=== PATIENT | male | born 1990 | race Caucasian/White ===

== ENCOUNTER 2023-06-14 21:29 | Emergency (ER) | payer OTHER ==
--- OUTSIDE RECORDS SUMMARY | 2023-06-14 21:31 | XMS REPORT | Continuity of Care Document ---
Author Name Unknown Address [address] [facility] [address] [place] [address] [facility] Address [address] [facility] [address] [place] [address] Care Team Providers Care Aurist Name Role Phone Pcp, Patient Does Not Have A Primary Care Physic justin Juan Craig MD Attending Clinician Casandra Wood Attending Clinician CASANDRA SPENCER Attending Clinician Unavailabl e Doctor Unassigned, Kincaid Attending Clinician U JUAN Schafer Attending Clinician Unavailable Payers Payer Name Policy Type Policy Number Effective Date Expirati on Date Source Problems Condition Name Condition Details Condition Category Status Onset Date Resolution Date Last Treatment Date Treating Clinician Comments Source No known active problems No known active problems Disease [facility] Allergies, Adverse Reactions, Alerts Allergy Name Allergy Type Status Severity Reaction(s) Onset Date Inactive Date Treating Clinician Comments Source NO KNOWN ALLERGIE S Drug Class Active [facility] Social History Social Habit Start Date Stop Date Quantity Comments Source Exposure to SARS-CoV-2 (event) 2021-12-10 00:00:00 2021-12-20 09:52:00 Not sure [facility] Alcohol intake 2021-12-20 00:00:00 2021-12-20 00:00:00 Current non-drinker of alcohol (finding) [facility] Tobacco use and exposure 2018-05-17 00:00:00 2018-05-17 00:00:00 Smokeless tobacco non-user [facility] Sex Ass[birth year] At 1990 00:00:00 1990 00:00:00 [facility] Smoking Status Start Date Stop Date Source Never smoked tobacco [facility] Medications Ordered Medication Name Filled Medication Name Start Date Stop Date Current Medication? Ordering Clinician Indication Dosage Frequency Signature (SIG) Comments Components Source predniSONE 10 mg tablet 2021- 8-04 00:00: 00 01-01 04:59 :00 No [id number] Take 4 tablets by mouth daily for 5 days, THEN 3 tablets daily for 3 days, THEN 2 tablets daily for 2 days, THEN 1 tablet daily for 1 day. [facility] predniSONE 10 mg tablet 2021-0 8-04 00:00: 00 01-01 04:59 :00 No [id number] Take 4 tablets by mouth daily for 5 days, THEN 3 tablets daily for 3 days, THEN 2 tablets daily for 2 days, THEN 1 tablet daily for 1 day. [facility] benzonatate 100 mg capsule 2020-05 00:00: 00 Yes [id number] 200mg Take 2 capsules by mouth 2 (two) times daily as needed for Cough. [facility] azelastine 137 mcg (0.1 %) nasal spray 2020-05 00:00: 00 Yes [id number] 1{spray } Use 1 Latrobe in each nostril 2 (two) times daily. Use in each nostril as directed [facility] benzonatate 100 mg capsule 2020-05 00:00: 00 Yes [id number] 200mg Take 2 capsules by mouth 2 (two) times daily as needed for Cough. [facility] azelastine 137 mcg (0.1 %) nasal spray 2020-05 00:00: 00 Yes [id number] 1{spray } Use 1 Latrobe in each nostril 2 (two) times daily. Use in each nostril as directed [facility] benzonatate 100 mg capsule 2020-05 00:00: 00 Yes [id number] 200mg Take 2 capsules by mouth 2 (two) times daily as needed for Cough. [facility] azelastine 137 mcg (0.1 %) nasal spray 2020-05 00:00: 00 Yes [id number] 1{spray } Use 1 Latrobe in each nostril 2 (two) times daily. Use in each nostril as directed [facility] benzonatate 100 mg capsule 2020-05 00:00: 00 Yes [id number] 200mg Take 2 capsules by mouth 2 (two) times daily as needed for Cough. [facility] azelastine 137 mcg (0.1 %) nasal spray 2020-05 00:00: 00 Yes [id number] 1{spray } Use 1 Latrobe in each nostril 2 (two) times daily. Use in each nostril as directed [facility] benzonatate 100 mg capsule 2020-05 00:00: 00 Yes [id number] 200mg Take 2 capsules by mouth 2 (two) times daily as needed for Cough. [facility] azelastine 137 mcg (0.1 %) nasal spray 2020-05 00:00: 00 Yes [id number] 1{spray } Use 1 Latrobe in each nostril 2 (two) times daily. Use in each nostril as directed [facility] fluticasone 50 mcg/actuati on nasal spray 2017-05 00:00: 00 Yes [id number] 2{spray } Use 2 Sprays in each nostril daily. [facility] fluticasone 50 mcg/actuati on nasal spray 2017-05 00:00: 00 Yes [id number] 2{spray } Use 2 Sprays in each nostril daily. [facility] fluticasone 50 mcg/actuati on nasal spray 2017-05 00:00: 00 Yes [id number] 2{spray } Use 2 Sprays in each nostril daily. [facility] fluticasone 50 mcg/actuati on nasal spray 2017-05 00:00: 00 Yes [id number] 2{spray } Use 2 Sprays in each nostril daily. [facility] fluticasone 50 mcg/actuati on nasal spray 2017-05 00:00: 00 Yes [id number] 2{spray } Use 2 Sprays in each nostril daily. [facility] Vital Signs Vital Name Observation Time Observation Value Comments S katie Systolic blood pressure 2021-12-20 14:58:00 117 mm[Hg] [facility] Diastolic blood pressure 2021-12-20 14:58:00 74 mm[Hg] [facility] Heart rate 2021-12-20 14:58:00 73 /min [facility] Body temperature 2021-12-20 14:58:00 36.67 Emily [facility] Respiratory rate 2021-12-20 14:58:00 19 /min [facility] Body height 2021-12-20 14:58:00 177.8 cm [facility] Body weight 2021-12-20 14:58:00 96.798 kg [facility] BMI 2021-12-20 14:58:00 30.62 kg/m2 [facility] Oxygen saturation in Arterial blood by Pulse oximetry 2021-12-20 14:58:00 98 /min [facility] Systolic blood pressure 2021-04-13 16:13:00 129 mm[Hg] [facility] Diastolic blood pressure 2021-04-13 16:13:00 83 mm[Hg] [facility] Heart rate 2021-04-13 16:13:00 78 /min [facility] Body temperature 2021-04-13 16:13:00 36.89 Emily [facility] Respiratory rate 2021-04-13 16:13:00 16 /min [facility] Body weight 2021-04-13 16:13:00 95.664 kg [facility] BMI 2021-04-13 16:13:00 30.26 kg/m2 [facility] Oxygen saturation in Arterial blood by Pulse oximetry 2021-04-13 16:13:00 99 /min [facility] Procedures Procedure Date / Time Performed Performing Clinicia n Source ASSIGNMENT OF BENEFITS 2021-12-20 14:50:28 Docto r Unassigned, Kincaid [facility] Encounters Start Date/Time End Date/Time Encounter Type Admission Type Attending Clinicians Care Facility Care Department Encounter ID Source 2021-12-24 00:00:00 2021-12-24 00:00:00 [facility] [id number] [facility] 2021-12-20 09:40:00 2021-12-20 10:00:00 [facility]gent [facility] 1..840.114 [id number] [facility] 2021-12-20 09:40:00 2021-12-20 09:40:00 [id number] 2021-12-20 00:00:00 2021-12-20 00:00:00 Orders Only Doctor Unassigned, Kincaid [place] [id number] [facility] 2021-04-13 10:09:11 2021-04-13 10:28:40 [facility] 1..840.114 [id number] [facility] 2021-04-13 10:00:00 2021-04-13 10:28:40 Outpatient R NHUNG [facility] [id number] [facility] 2021-04-13 00:00:00 2021-04-13 00:00:00 Letter (Out) Doctor Unassigned, Kincaid [place] [id number] [facility]
[2023-06-14 22:08] LABS: Absolute Basophils 0.1 K/uL (0-0.5); Absolute Lymphocytes (CBC) 2.7 K/uL (0.7-4.9); Absolute Monocytes 0.6 K/uL (0.1-1.3); Absolute Neutrophil 5.1 K/uL (1.8-8.0); Basophils % 0.8 % (0-1.3); Eosinophils % 18.9 % (0-4.4); Hematocrit 43.3 % (39.6-49.0); Hemoglobin 14.8 g/dL (13.6-17.9); MCH 29.2 pg (27.0-35.0); MCHC 34.2 g/dL (32.0-36.0); MCV 85.3 fL (80-100); MPV 8.4 fL (7.6-11.3); Monocytes % 5.4 % (3.3-12.3); Neutrophils % 48.9 % (41.7-73.7); Platelets 218 thou/uL (152-406); RBC Red Blood Cell Count 5.07 M/uL (4.33-5.43); Red Cell Distribution Width 13.6 % (12.1-15.2)
[2023-06-14] MEDS ORDERED: KETOROLAC 30 MG/ML INJ ONE (22:13)
[2023-06-14] MEDS ORDERED: NA CHLORIDE 0.9% 1,000 ML ONE (22:13)
[2023-06-14] MEDS ORDERED: ONDANSETRON 4 MG/2 ML VIAL ONE (22:13)
[2023-06-14 22:23] LABS: Albumin 3.9 g/dL (3.4-5.0); Albumin/Globulin Ratio 1.2 (1.1-1.8); Anion Gap 9.9 mEq/L (5.0-15.0); Bilirubin Total 0.4 mg/dL (0.2-1.0); Globulin 3.2 g/dL (2.3-3.5); Potassium 3.9 mEq/L (3.5-5.1); Protein, Total 7.1 g/dL (6.4-8.2)
[2023-06-14 22:31] LABS: Urine Bilirubin NEGATIVE (Negative); Urine Blood Negative (Negative); Urine Clarity Clear (Clear); Urine Color Light-Yellow (Yellow); Urine Glucose NEGATIVE (Negative); Urine Ketones NEGATIVE (Negative); Urine Microscopic Reflex YN NO UMIC; Urine Nitrite NEGATIVE (Negative); Urine Protein NEGATIVE (Negative); Urine Urobilinogen Normal (Normal); Urine pH 5.5 (5.0-7.0)
[2023-06-14 22:43] LABS: Blood Morphology Comment NOT SEEN (NOT SEEN); Platelet Estimate ADEQ; White Blood Cell Scan OK (OK)
--- NOTE | 2023-06-15 01:20 | ER ---
Nurse's Notes [facility] Name: Jerrod Alvarez Age: 32 yrs Sex: Male : 1990 Arrival Date: 06/14/2023 Time: 21:29 Bed 15 Private MD: Diagnosis: Abdominal pain, unspecified Presentation: 06/14 21:38 Chief complaint: Patient states: two weeks ago I had diarrhea for like five days. ha1 diarrhea stopped but I am having ongoing abdominal pain ever since. Coronavirus screen: Vaccine status: Patient reports receiving the 1st dose of the Covid vaccine. J and J. Ebola Screen: No symptoms or risks identified at this time. Initial Sepsis Screen: Does the patient meet any 2 criteria? No. Patient's initial sepsis screen is negative. Does the patient have a suspected source of infection? No. Patient's initial sepsis screen is negative. Risk Assessment: Do you want to hurt yourself or someone else? Patient reports no desire to harm self or others. Onset of symptoms was June 14, 2023. 21:38 Method Of Arrival: Ambulatory 1 21:38 Acuity: JOHNNIE 3 ha1 Triage Assessment: 21:41 General: Appears comfortable, Behavior is calm, cooperative. Pain: Complains of pain in ha1 abdomen Pain does not radiate. Pain currently is 6 out of 10 on a pain scale. Neuro: Level of Consciousness is awake, alert, obeys commands, Oriented to person, place, time, situation. Respiratory: Airway is patent Respiratory effort is even, unlabored, Respiratory pattern is regular, symmetrical. GI: Abdomen is flat, non-distended, Reports lower abdominal pain, upper abdominal pain, nausea. Historical: - Allergies: 21:41 No Known Allergies; ha1 - PMHx: 21:41 None; ha1 - PSHx: 21:41 shoulder repair; ha1 - Immunization history:: Adult Immunizations up to date. - Social history:: Smoking status: Patient denies any tobacco usage or history of. Screenin:00 [facility] ED Fall Risk Assessment (Adult) History of falling in the last 3 months, lg3 including since admission No falls in past 3 months (0 pts). Abuse screen: Denies threats or abuse. Denies injuries from another. Nutritional screening: No deficits noted. Tuberculosis screening: No symptoms or risk factors identified. Assessment: 22:00 General: Appears in no apparent distress. comfortable, Behavior is calm, cooperative. lg3 Pain: Complains of pain in abdomen Pain does not radiate. Neuro: No deficits noted. Duff Agitation-Sedation Scale (RASS): 0 - Alert and Calm Level of Consciousness is awake, alert, obeys commands, Oriented to person, place, time, situation. Cardiovascular: No deficits noted. Denies chest pain, shortness of breath, Capillary refill < 3 seconds Clubbing of nail beds is absent JVD is absent. Respiratory: No deficits noted. Airway is patent Respiratory effort is even, unlabored, Respiratory pattern is regular, symmetrical. GI: Abdomen is round non-distended, Bowel sounds present X 4 quads. Abd is soft X 4 quads Abdomen is tender to palpation in abdomen Reports lower abdominal pain, upper abdominal pain, cramping. : No deficits noted. No signs and/or symptoms were reported regarding the genitourinary system. EENT: No deficits noted. No signs and/or symptoms were reported regarding the EENT system. Derm: No deficits noted. No signs and/or symptoms reported regarding the dermatologic system. Skin is intact, is healthy with good turgor, Skin is dry, Skin is normal, Skin temperature is warm. Musculoskeletal: No deficits noted. No signs and/or symptoms reported regarding the musculoskeletal system. Circulation, motion, and sensation intact. Range of motion: intact in all extremities. 23:11 Reassessment: Patient appears in no apparent distress at this time. No changes from lg3 previously documented assessment. Patient and/or family updated on plan of care and expected duration. Pain level reassessed. Patient is alert, oriented x 3, equal unlabored respirations, skin warm/dry/pink. 06/15 00:12 Reassessment: Patient appears in no apparent distress at this time. No changes from lg3 previously documented assessment. Patient and/or family updated on plan of care and expected duration. Pain level reassessed. Patient is alert, oriented x 3, equal unlabored respirations, skin warm/dry/pink. Patient states feeling better. Patient states symptoms have improved. 01:30 Reassessment: Patient appears in no apparent distress at this time. No changes from lg3 previously documented assessment. Patient and/or family updated on plan of care and expected duration. Pain level reassessed. Patient is alert, oriented x 3, equal unlabored respirations, skin warm/dry/pink. Patient states feeling better. Patient states symptoms have improved. Vital Signs: 06/14 21:38 BP 137 / 85; Pulse 65; Resp 17 S; Temp 97.9(O); Pulse Ox 100% on R/A; Weight 98.43 kg; ha1 Height 5 ft. 10 in. ; Pain 6/10; 23:11 BP 129 / 81; Pulse 68; Resp 17 S; Pulse Ox 100% on R/A; lg3 06/15 00:12 BP 117 / 78; Pulse 62; Resp 17 S; Pulse Ox 99% on R/A; lg3 01:30 BP 119 / 74; Pulse 64; Resp 16 S; Pulse Ox 100% on R/A; lg3 06/14 21:38 Body Mass Index 31.14 (98.43 kg, 177.8 cm) ha1 06/14 21:38 Pain Scale: Adult [facility] ED Course: 06/14 21:32 Patient arrived in ED. jj6 21:39 Mango Reynolds PA is PHCP. cp 21:39 Mango Lara MD is Attending Physician. cp 21:41 Triage completed. ha1 21:59 CBC with Diff Sent. bc6 21:59 CMP Sent. bc6 21:59 Lipase Sent. bc6 21:59 Inserted saline lock: 20 gauge in right antecubital area, using aseptic technique. bc6 Blood collected. 22:00 Patient maintains SpO2 saturation greater than 95% on room air. lg3 22:00 Patient has correct armband on for positive identification. Placed in gown. Bed in low lg3 position. Call light in reach. Side rails up X 1. Client placed on continuous cardiac and pulse oximetry monitoring. NIBP monitoring applied. Door closed. Noise minimized. Warm blanket given. Family accompanied patient. 22:00 Arm band placed on right wrist. lg3 22:03 Isabela Carter, RN is Primary Nurse. lg3 22:21 Urinalysis w/ reflexes Sent. lg3 23:14 CT Abd/Pelvis - IV Contrast Only In Process Unspecified. EDMS 06/15 01:19 Benton Murdock MD is Referral Physician. cp 01:31 No provider procedures requiring assistance completed. IV discontinued, intact, lg3 bleeding controlled, No redness/swelling at site. Pressure dressing applied. Administered Medications: 06/14 22:21 Drug: NS 0.9% IV 1000 ml IV at 1 bolus Per protocol; 1000 mL bolus Route: IV; Rate: 1 lg3 bolus; Site: right antecubital; 06/15 01:32 Follow up: IV Status: Completed infusion; IV Intake: 1000ml lg3 06/14 22:21 Drug: TORadol - Ketorolac IVP 15 mg IVP once Route: IVP; Site: right antecubital; lg3 23:07 Follow up: Response: No adverse reaction lg3 22:21 Drug: Ondansetron IVP 4 mg IVP once; over 2 minutes Route: IVP; Site: right antecubital;lg3 23:07 Follow up: Response: No adverse reaction lg3 Medication: 06/15 01:31 VIS not applicable for this client. lg3 Intake: 01:32 IV: 1000ml; Total: 1000ml. lg3 Outcome: 01:20 Discharge ordered by . cp 01:31 Discharged to home ambulatory, with significant other, lg3 01:31 Condition: stable 01:31 Discharge instructions given to patient, Instructed on discharge instructions, follow up and referral plans. medication usage, Demonstrated understanding of instructions, follow-up care, medications, Prescriptions given X 2, 01:32 Patient left the ED. lg3 Signatures: Dispatcher [employer] EDMS Mango Reynolds PA PA cp Able, Lacie RN RN lg3 Di Linares jj6 Lesli Stewart RN RN ha1 Melissa Díaz 6
--- NOTE | 2023-06-15 01:20 | EDPHYS ---
Physician Documentation [facility] Name: Jerrod Alvarez Age: 32 yrs Sex: Male : 1990 Arrival Date: 06/14/2023 Time: 21:29 Bed 15 Private MD: ED Physician Mango Lara HPI: 06/14 22:00 This 32 yrs old Male presents to ER via Ambulatory with complaints of Abdominal Pain. cp 22:00 The patient presents with abdominal pain. cp 22:00 Onset: The symptoms/episode began/occurred 2 week(s) ago. cp 22:00 The symptoms do not radiate. Associated signs and symptoms: Pertinent negatives: cp anorexia, blood in stools, chest pain, dysuria, fever, testicular pain, vomiting. The symptoms are described as waxing/waning. Modifying factors: the symptoms are aggravated by nothing. Severity of pain: in the emergency department the pain is unchanged despite home interventions. 22:00 Patient reports about 2 weeks ago he had diarrhea for 5 days that has since improved. cp Historical: - Allergies: 21:41 No Known Allergies; ha1 - PMHx: 21:41 None; ha1 - PSHx: 21:41 shoulder repair; ha1 - Immunization history:: Adult Immunizations up to date. - Social history:: Smoking status: Patient denies any tobacco usage or history of. ROS: 22:05 Constitutional: Negative for body aches, chills, fever, poor PO intake, cp 22:05 Eyes: Negative for injury, pain, redness, and discharge, cp 22:05 ENT: Negative for drainage from ear(s), ear pain, sore throat, difficulty swallowing, difficulty handling secretions, 22:05 Cardiovascular: Negative for chest pain, edema, palpitations, 22:05 Respiratory: Negative for cough, shortness of breath, wheezing, 22:05 Abdomen/GI: Positive for abdominal pain, nausea, Negative for vomiting, diarrhea, constipation, anorexia, black/tarry stool, rectal bleeding, 22:05 Back: Negative for pain at rest, pain with movement, 22:05 : Negative for urinary symptoms, hematuria, testicular pain 22:05 Neuro: Negative for altered mental status, dizziness, headache, weakness, 22:05 All other systems are negative, Exam: 22:10 Constitutional: The patient appears in no acute distress, alert, awake, cp non-diaphoretic, non-toxic, well developed, well nourished, 22:10 Head/Face: Normocephalic, atraumatic. cp 22:10 Eyes: Periorbital structures: appear normal, Conjunctiva: normal, no exudate, no injection, Sclera: no appreciated abnormality, Lids and lashes: appear normal, bilaterally, 22:10 ENT: External ear(s): are unremarkable, Nose: is normal, Mouth: Lips: moist, Oral mucosa: pink and intact, moist, Posterior pharynx: is normal, airway is patent, no erythema, no exudate, 22:10 Chest/axilla: Inspection: normal, 22:10 Cardiovascular: Rate: normal, Rhythm: regular, 22:10 Respiratory: the patient does not display signs of respiratory distress, Respirations: normal, no use of accessory muscles, no retractions, labored breathing, is not present, Breath sounds: are clear throughout, no decreased breath sounds, no stridor, no wheezing, 22:10 Abdomen/GI: Inspection: abdomen appears normal, Bowel sounds: active, all quadrants, Palpation: soft, in all quadrants, mild abdominal tenderness, in the mid abdomen, rebound tenderness, is not appreciated, involuntary guarding, is not appreciated, 22:10 Back: pain, is absent, ROM is normal, 22:10 Neuro: Orientation: to person, place \T\ time. Mentation: is normal, Vital Signs: 21:38 BP 137 / 85; Pulse 65; Resp 17 S; Temp 97.9(O); Pulse Ox 100% on R/A; Weight 98.43 kg; ha1 Height 5 ft. 10 in. ; Pain 6/10; 23:11 BP 129 / 81; Pulse 68; Resp 17 S; Pulse Ox 100% on R/A; lg3 06/15 00:12 BP 117 / 78; Pulse 62; Resp 17 S; Pulse Ox 99% on R/A; lg3 01:30 BP 119 / 74; Pulse 64; Resp 16 S; Pulse Ox 100% on R/A; lg3 06/14 21:38 Body Mass Index 31.14 (98.43 kg, 177.8 cm) [facility] 06/14 21:38 Pain Scale: Adult [facility] MDM: 06/14 21:48 Patient medically screened. [facility] 06/15 01:20 Data reviewed: vital signs, nurses notes, lab test result(s), radiologic studies, CT cp scan. 01:20 Differential diagnosis: cholecystitis, Cholelithiasis, non-specific abd pain, cp pancreatitis, Peptic Ulcer Disease, Perf. Duodenal Ulcer, Perf. Gastric Ulcer, Pyelonephritis. I considered the following discharge prescriptions or medication management in the emergency department Medications were administered in the Emergency Department. See MAR. Counseling: I had a detailed discussion with the patient and/or guardian regarding the historical points, exam findings, and any diagnostic results supporting the discharge/admit diagnosis, lab results, radiology results, the need for outpatient follow up, a branch sales and service representative, to return to the emergency department if symptoms worsen or persist or if there are any questions or concerns that arise at home. Special discussion: Based on the patient's Hx, exam, and Dx evaluation, there is no indication for emergent surgery or inpatient Tx. It is understood by the patient/guardian that if the Sx's persist or worsen they need to return immediately for re-evaluation. 06/14 21:58 Order name: CBC with Diff; Complete Time: 23:36 cp 06/14 23:36 Interpretation: Reviewed. cp 06/14 21:58 Order name: CMP; Complete Time: 23:36 cp 06/14 23:36 Interpretation: Normal except: GLUC 117; GFR 84; CA 8.4. cp 06/14 21:58 Order name: Lipase; Complete Time: 23:36 cp 06/14 21:58 Order name: Urinalysis w/ reflexes; Complete Time: 23:36 cp 06/14 22:44 Order name: CBC Smear Scan; Complete Time: 23:36 EDMS 06/14 21:58 Order name: CT Abd/Pelvis - IV Contrast Only cp 06/14 21:58 Order name: IV Saline Lock; Complete Time: 21:59 cp 06/14 21:58 Order name: Labs collected and sent; Complete Time: 21:59 cp Administered Medications: 06/14 22:21 Drug: NS 0.9% IV 1000 ml IV at 1 bolus Per protocol; 1000 mL bolus Route: IV; Rate: 1 lg3 bolus; Site: right antecubital; 06/15 01:32 Follow up: IV Status: Completed infusion; IV Intake: 1000ml lg3 06/14 22:21 Drug: TORadol - Ketorolac IVP 15 mg IVP once Route: IVP; Site: right antecubital; lg3 23:07 Follow up: Response: No adverse reaction lg3 22:21 Drug: Ondansetron IVP 4 mg IVP once; over 2 minutes Route: IVP; Site: right antecubital;lg3 23:07 Follow up: Response: No adverse reaction lg3 Disposition Summary: 06/15/23 01:20 Discharge Ordered Notes: Location: Home cp Problem: new cp Symptoms: have improved cp Condition: Stable cp Diagnosis - Abdominal pain, unspecified cp Followup: cp - With: Benton Murdock MD - When: 2 - 3 days - Reason: Recheck today's complaints Discharge Instructions: - Discharge Summary Sheet cp - Abdominal Pain, Adult cp Forms: - Medication Reconciliation Form cp - Thank You Letter cp - Antibiotic Education cp - Prescription Opioid Use cp - Patient Portal Instructions cp - Leadership Thank You Letter cp - Work release form vc1 Prescriptions: - Zofran 4 mg Oral Tablet - take 1 tablet ORAL route every 12 hours As needed; 20 tablet; Refills: 0, cp Product Selection Permitted - dicyclomine 20 mg Oral tablet - take 1 tablet ORAL route 4 times per day; 30 tablet; Refills: 0, Product cp Selection Permitted Signatures: Dispatcher [employer] Mango Beltre MD MD cha Page, Corey, PA PA cp Able, Lacie RN RN lg3 Lesli Stewart RN RN ha1
[2023-06-15 02:21] VITALS: TEMP 97.9; O2SAT 100
[2023-06-15 02:35] VITALS: BP 119/74
--- NOTE | 2023-06-16 10:57 | RAD REPORT ---
EXAM DESCRIPTION: CT - Abdomen Pelvis W Contrast - 06/15/2023 7:17 am CLINICAL HISTORY: 32-year-old male with abdominal pain. COMPARISON: None. TECHNIQUE: CT of the abdomen and pelvis was performed without intravenous or oral contrast. Multipla dorothy reformatted images were provided. This exam was performed according to our departmental dose opti mization program which includes use of automated exposure control, adjustment of the mA and/or kV acc ording to patient size and/or use of iterative reconstruction technique. FINDINGS: Evaluation of solid organ pathology is limited secondary to lack of intravenous contrast. Within these limitations, the following observations are made. Chest: Evaluation through the lung bases reveals no focal opacity, pleural effusion or pneumothorax. Bilateral lower lobe calcification compatible with granulomata. Left hilar calcifications suggest seq uela of granulomatous disease. Heart size is within normal limits. No pericardial effusion. Abdomen and pelvis: The liver, gallbladder, pancreas, spleen, bilateral kidneys and bilateral adrenal glands are within normal limits. Punctate foci of calcification present throughout the spleen and li yunior compatible with sequela of prior granulomatous disease. The vessels are normal in caliber. Retroaortic left renal vein. No abdominopelvic lymph nodes are noted to be pathologically enlarged by CT measurement criteria. The bowel is within normal limits without abnormal bowel wall thickness or bowel dilation. No free air. No free abdominopelvic fluid collections. The appendix is within normal limits. Thickened appearance of the bladder wall may be secondary to incomplete distention, however can be se en in the setting of infectious or inflammatory process. Please correlate with laboratory values. The osseous structures are within normal limits. IMPRESSION: 1. No specific acute intra-abdominal findings are noted to suggest etiology of the pat ient's abdominal pain. 2. Thickened appearance of the bladder wall may be secondary to incomplete distention, however can be seen in the setting of infectious or inflammatory process. Please correlate with laboratory values . Electronically signed by: Jacki Coto MD 06/14/2023 11:39 PM [employer] Due to temporary technical issues with the PACS/Fluency reporting system, reports are being signed by the in house radiologist without review as a courtesy to ensure prompt reporting. The interpreting r adiologist is fully responsible for the content of the report.
== END 2023-06-15 01:32 | disposition home or self-care (01) ==
LOC: ER 21:29
DX: R10.10 Upper abdominal pain, unspecified (principal); R10.30 Lower abdominal pain, unspecified
CPT/HCPCS: 96361; 85025; 36415; 81003; 83690; 80053; 74177; 96375; 96374; 99285; Q9967; J2405; J7030